=== PATIENT | male | born 2000 | race Caucasian/White ===

== ENCOUNTER 2021-04-10 01:28 | Outpatient (CLI) | payer MEDICAID, SELFPAY ==
--- NOTE | 2021-04-13 10:06 | PDOC.EEG ---
Neurology EEG EEG: [facility] Department of Neurology LONG-TERM AMBULATORY EEG REPORT Date of Recordin04/10/21 at 15:40:50 to 04/12/21 at 12:42:07 Interpreting Physician: Dr. Izabella Edwards PCP/Referring Provider: Dr. 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 Current Medications: Home Medications Medication Instructions Recorded Confirmed Type acetaminophen-calcium carbonat 500 tab PO 05/14/19 07/12/19 History mg-250 mg tablet nortriptyline 75 mg capsule 75 mg PO QHS #30 cap 03/31/21 03/31/21 Rx zonisamide 100 mg capsule 400 mg PO HS cap 03/31/21 03/31/21 History METHODS: An 18-channel digitized electroencephalogram was recorded in the ambulatory setting with video. The 10/20 international system of electrode placement was used and bipolar and referential electrode montages were recorded. In addition to EEG the patient was monitored for EKG and by video. Activation procedures of photic stimulation and hyperventilation were performed if applicable. The duration of the recording was ~45 hours. DESCRIPTION OF EEG: Waking background activity: During maximal wakefulness a 9-Hz posterior background rhythm was present which was well-modulated, symmetrical, reactive to eye opening, and of moderate voltage. Faster frequencies were present in the bilateral anterior head regions. There was a normal anterior-posterior voltage gradient. Drowsy and sleeping background activity: During drowsiness, there was attenuation of the posterior dominant background rhythm and vertex waves. Normal stage II and III sleep was present with symmetrical sleep spindles, K-complexes, and vertex waves with slowing of the background rhythm to delta/theta frequencies. REM sleep manifested by rapid lateral eye movements and faster background rhythms was recorded. Arousal was unremarkable. Interictal abnormalities: Excessive right frontal beta activity. Rare left hemisphere delta slowing, often associated with sharp-waves. Ictal findings: No events recorded. Activating Procedures: Photic stimulation was performed which produced a symmetrical posterior driving response at various flash frequencies. Hyperventilation was performed with moderate effort and produced no physiological slowing of the background. EKG: EKG revealed normal sinus rhythm. INTERPRETATION: This long-term EEG is abnormal due to: #1. Excessive right frontal beta activity. #2. Rare left hemisphere slowing, at times, with sharp waves. PRIOR EEG: -EEG (10/25/14 at [facility]): excessive beta of right frontal region. -EEG (05/12/15 at [facility] [place]): excessive beta in right frontal region, especially F4. CLINICAL CORRELATION: The findings above seem to correlate with the patient's known cerebral malformations. There was no epileptiform activity seen and no events captured. Clinical correlation is advised. Izabella Edwards MD
== END 2021-04-10 01:29 | disposition home or self-care (01) ==
LOC: RT 01:28
PROVIDERS: PCP Family Medicine; Visit Provider Psychiatry & Neurology Neurology
DX: R41.840 Attention and concentration deficit (principal); G40.909 Epilepsy, unspecified, not intractable, without status epilepticus; R94.01 Abnormal electroencephalogram [EEG]; Q04.3 Other reduction deformities of brain
CPT/HCPCS: 95714

== ENCOUNTER 2021-05-08 18:18 | Outpatient (REF) | payer MEDICAID, SELFPAY ==
[2021-05-13 07:54] LABS: Zonisamide 28 mcg/mL (10-40)
== END 2021-05-08 18:19 | disposition home or self-care (01) ==
LOC: LBN 18:18
PROVIDERS: PCP Family Medicine; Visit Provider Psychiatry & Neurology Neurology
DX: G40.909 Epilepsy, unspecified, not intractable, without status epilepticus (principal)
CPT/HCPCS: 80203

== ENCOUNTER 2021-07-20 00:42 | Outpatient (CLI) | payer MEDICAID, SELFPAY ==
--- NOTE | 2021-07-20 08:30 | DI.US_ITS ---
Exam(s) US NEEDLE LOCAL OTHER WO RAD EXAM: US NEEDLE LOCAL OTHER WO RAD CLINICAL HISTORY: Neck mass,R22.0, FINE NEEDLE ASPIRATION,BX. COMPARISON: No exams were available for comparison TECHNIQUE: Ultrasound was provided for Dr. Parrish for guidance with performing a biopsy of a right s ubmandibular gland mass. FINDINGS: Images show a solid vascular mass containing calcifications measuring 2.9 cm in diameter. Images jania w confirmation of needle placement within the mass. Please see procedure note for details. IMPRESSION: Successful Ultrasound-guided biopsy. DATA REPOSITORY:
--- NOTE | 2021-07-20 13:15 | PAPNONF_PTH ---
PATIENT: Avery Anand LOC: [facility] U#:[id number] AGE/SX: 20/M ROOM: RE07/20/[address]: Solomon Parrish MD : 2000 BED: DIS: 07/20/2021 SPEC #: [id number] RECD: 07/20/21 17:59 STATUS: JANET REMike #: [id number] LIZETH: 07/20/21 13:[address]: Solomon Parrish DEPT: [facility] Cytology RECD BY: Fanny Price ENTERED: 07/20/21 18:00 SP TYPE: YANET RODRIGUEZ DR: Ale Mancini V Tissues: 1 - BODY FLUID CYTO-FINE NEEDLE ASPIRATE-[facility] Procedures: BODY FLUID CYTO-FINE NEEDLE ASPIRATE-[facility] Comments: [id number]
--- NOTE | 2021-07-20 14:37 | OPPNE_ITS ---
Procedure Note Date of procedure: 07/20/21 Procedure: FNA, right submandibular gland, ultrasound-guided, pathology available Procedure Diagnosis: Right submandibular mass Procedure Indications: Patient with a right-sided submandibular mass without definitive diagnosis. Options were explained to the family regarding further management. They elected undergo the above procedure. Consent was filled out and signed prior to surgery. Procedure Description: The patient was positioned in the supine position with his head turned to the left. A ultrasound probe was used to localize the mass within his right s ubmandibular gland, and then the patient was prepped and draped in appropriate fashion. 1% lidocaine with 1/100,000 epinephrine was injected into the skin and subcutaneous tissues overlying the mass, and after allowing 5 minutes to elapse a 25-gauge needle was passed repeatedly into the nodule under ultrasound guidance. The specimen was then handed to pathology who assessed this for cellular adequacy. A second pass was made to provide adequate material. On both passes pathology felt there was sufficient cellularity. Following the 2 passes, and after ensuring adequate hemostasis, a sterile dressing was applied and the patient was allowed to sit at the side of the bed, and then stand. His vital signs remained stable. He was able to ambulate without difficulty. He will call if he does not hear from me with regard to pathology within 1 week. He will call with any signs of infection. He may use Tylenol or ibuprofen for discomfort. He had no further questions. He will remove the bandage tomorrow and not replace it. His father had no further questions. They are comfortable with the plan.
== END 2021-07-20 01:02 ==
PROVIDERS: PCP Family Medicine; Visit Provider Otolaryngology
DX: D37.039 Neoplasm of uncertain behavior of the major salivary glands, unspecified (principal)
CPT/HCPCS: 76942; 88104

== ENCOUNTER 2021-09-04 01:11 | Outpatient (CLI) | payer MEDICAID, SELFPAY ==
[2021-09-04 11:42] LABS: Source Nasal/Nares
[2021-09-04 13:41] LABS: COVID-19 PCR Negative (Negative)
== END 2021-09-04 01:12 | disposition home or self-care (01) ==
LOC: LBO 01:11
PROVIDERS: PCP Family Medicine; Visit Provider Otolaryngology
DX: Z20.822 Contact with and (suspected) exposure to COVID-19 (principal); Z01.818 Encounter for other preprocedural examination
CPT/HCPCS: 87635

== ENCOUNTER 2021-09-07 07:30 | Day surgery (SDC) | payer MEDICAID, SELFPAY ==
[2021-09-07] VITALS (7 sets, daily range): BP systolic 103–126; BP diastolic 68–85; PULSE 73–85; RESP 11–16; TEMP 35.9–36.6; O2SAT 97–100; BMI 28.0
[2021-09-07] MEDS: Lactated Ringers 1,000 ML 80 ML IV (08:17)
--- NOTE | 2021-09-07 08:34 | W.ANESPRE ---
General Info Date of Service Date Performed: 09/07/21 Height: 5 ft 6 in Weight: 78.7 kg Body Mass Index (BMI): 28.0 Surgical Procedure: Operation Date: 09/07/21 09:25 Proposed Procedure Side Surgeon p Submandibular Gland Excision Right Solomon Parrish MD Meds Allergies and Home Medications Allergies Allergy/AdvReac Type Severity Reaction Status Date / Time No Known Allergies Allergy Unverified 09/07/21 07:51 Home Medication Medication Instructions Recorded nortriptyline 75 mg capsule 75 mg PO QHS #90 caps 06/08/21 zonisamide 100 mg capsule 400 mg PO HS #360 caps 06/08/21 Current Visit Medications: Current Medications Generic Name Dose Route Start Last Admin Trade Name Freq PRN Reason Stop Dose Admin Ringer's Solution 1,000 mls @ 80 mls/hr 09/07/21 06:00 09/07/21 08:17 IV 10/04/21 23:59 80 mls/hr INFUSION COMPA Administration Cefazolin Sodium/Dextrose 2 gm in 50 mls @ 100 mls/hr 09/07/21 06:00 Ancef Duplex IVPB 10/04/21 23:59 PREOP COMPA Tranexamic Acid 770 mg/ Sodium 57.7 mls @ 346.2 mls/hr 09/07/21 06:00 Chloride IVPB 09/07/21 23:59 DIRECTED COMPA IV Miscellaneous Supplies 1 each 09/07/21 06:00 Iv Access IV 10/04/21 23:59 DIRECTED COMPA Sodium Chloride 0 ml 09/07/21 06:00 Normal Saline Flush 10 Ml Syr IV 10/04/21 23:59 PRN PRN Sodium Chloride 0 ml 09/07/21 06:00 Normal Saline 10 Ml Vial IJ 10/04/21 23:59 DIRECTED PRN Sterile Water 0 ml 09/07/21 06:00 Water,Injection,Sterile 10 Ml Vial IJ 10/04/21 23:59 DIRECTED PRN PFSH Active Problems Active Problems: Problem Status Onset Code Epilepsy G40.909 Chronic daily headache R51 Migraine headache with aura G43.109 Migraine aura without headache G43.109 Polymicrogyria Q04.3 Insomnia G47.00 Mass of right submandibular region R22.0 Skin cyst L72.9 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 Per dad states they are very controlled with medications. Sleeping difficulties Surgical History Surgical History No significant past surgical history Tobacco Smoking/Tobacco Use Status: Former Tobacco Use Alcohol Alcohol Intake: current Alcohol intake frequency: a few times a week Alcohol type: beer and hard liquor Substance Use Substance use: Occasionally Substance use type: marijuana Details: Smoked marijuana last Tuesday09/04/21 Vital Signs and Lab Results Vital Signs Most Recent Vital Signs in EMR: Most Recent Vital Signs Temp Pulse Resp BP Pulse Ox 36.4 C L 85 12 103/68 100 09/07/21 07:45 09/07/21 07:45 09/07/21 07:45 09/07/21 07:45 09/07/21 07:45 Lab Results Blood Type / Crossmatch: No Data to Display Complete Blood Count: No Data to Display Complete Metabolic Panel: No Data to Display Liver Function Panel: No Data to Display Coagulation Panel: No Data to Display Cardiac Panel: No Data to Display Arterial Blood Gas: No Data to Display Venous Blood Gas: No Data to Display Pancreas Panel: No Data to Display Thyroid Panel: No Data to Display Infectious Disease: Coronavirus (COVID-19)(PCR) Negative (Negative) 09/04/21 11:30 Coronavirus 2019 Source Nasal/Nares 09/04/21 11:30 Blood Cultures: No Data to Display Toxicology Panel: No Data to Display Anesthesia Assessment and Plan Anesthesia History Personal History: No History of Anesthesia Complications Family History: No Family History of Anesthesia Complications Exercise Tolerance Exercise Tolerance: Metabolic Equivalents>4 Pertinent Negatives Pertinent Negatives: No Symptoms of GERD, No Major Cardiovascular Symptoms or Complaints, No Major Pulmonary Symptoms or Complaints and No History of CVA/TIA Cardiac & Pulmonary Exam Cardiac Exam: Normal S1/S2 Heart Sounds Pulmonary Exam: Clear Bilateral Breath Sounds Implantable Cardiac Device Does patient have a Pacemaker or an ICD?: No Airway Exam Known Difficult Airway: No Mallampati Class: 1 Mouth Opening: Normal (> 3cm) Thyromental Distance: Greater than 3 cm Neck Range of Motion: Full ROM Neck Circumference: Normal Teeth Condition: Normal Dentition ASA Classification ASA Score: ASA 2 Emergency Case?: No NPO Status NPO Status: NPO Clears >2 hours, Solids >8 hours Anesthesia Plan Resuscitation Status: Full Code Anesthesia Technique: General Anesthesia Airway Planned: Endotracheal Tube Monitors Used: Standard Monitors
[2021-09-07] MEDS: ceFAZolin 2 GM/50 ML BAG IVPB (08:58)
--- NOTE | 2021-09-07 10:37 | GLAND_PTH ---
PATIENT: Avery Anand LOC: [facility] U#:[id number] AGE/SX: 20/M ROOM: RE09/07/[address]: Solomon Parrish MD : 2000 BED: DIS: 09/07/2021 SPEC #: [id number] RECD: 09/07/21 12:16 STATUS: JANET REMike #: [id number] LIZETH: 09/07/21 10:[address]: Solomon Parrish DEPT: Surgical Specimen RECD BY: Fanny Price ENTERED: 09/07/21 12:17 SP TYPE: Gland OTHR DR: Ale Mancini V Tissues: 1 - SOFT TISSUE MISC (INC. LIPOMA) 2 - SKIN CYST/TAG/DEBRIDEMENT Procedures: GROSS AND MICRO LEVEL 5 GROSS AND MICRO LEVEL 3 Comments: [id number]
[2021-09-07] MEDS: Lidocaine 1% Multi-Dose W/EPI 1/100,000 50 ML VIAL (11:11)
--- NOTE | 2021-09-07 11:19 | W.PM.DSUDISC ---
Discharge Plan Disposition Patient Disposition: HOME Condition: Good Discharge Details Reason For Visit: Submandibular gland excision, skin cyst excision Attending Provider: Solomon Parrish Primary Care Provider: Ale Mancini V Home Meds and New Rx's Prescriptions: No Action zonisamide 100 mg capsule 400 mg PO HS Qty: 360 3RF nortriptyline 75 mg capsule 75 mg PO QHS Qty: 90 3RF Discharge Instructions Additional Instructions: Avoid lifting greater than 20 pounds for the next week, light activity only today, walk at least a quarter of mile per day thereafter. May return to work on Tuesday with above restriction. Remove dressing tomorrow after shower, then you may get the wound wet. Do not reapply dressing except if necessary for work. Apply bacitracin or Neosporin ointment twice a day to both incisions for 3 days once dressings are removed. Call with any signs of infection, or excessive swelling. Call with any concerns. Ibuprofen or Tylenol for pain. Continue your previous medications. Referrals: Solomon Parrish MD [ [facility] STAFF PHYSICIAN] - (1 week for suture removal, please call for an appointment for the patient prior to his departure from recovery) Diet:: As Tolerated Discharge Orders Discharge Orders: Discharge Order (Routine); Ordered 09/07/21 Ordered By: Solomon Parrish
--- NOTE | 2021-09-07 11:23 | ROE_ITS ---
Operative Note Operative Note DATE OF PROCEDURE: 09/07/21 PRE-OP DIAGNOSIS: Right submandibular gland mass, left skin cyst, neck POST-OP DIAGNOSIS: same PROCEDURE: Right submandibular gland excision, left skin cyst excision, simple closure SURGEON: Solomon Parrish COMPUTERIZED MACHINE FABRIC CUTTER: Krystina Keys ANESTHESIA TYPE: General LMA/ETT Refer to Anesthesia Record ESTIMATED BLOOD LOSS: 20 PATHOLOGY: other (Right submandibular gland, left skin cyst) COMPLICATIONS: None Patient was transported to: PACU Patient's condition: stable Indications: Patient with a right-sided submandibular gland lesion, FNA consistent with basal cell, which could be a pleomorphic variant, but could represent malignancy, options were explained, and the patient and his father elected to undergo the above procedure. Consent was filled out and signed prior to surgery. At the same time, they noted a cyst on his left neck. They asked if this could be removed at the same time. H&P was reviewed. There have been no changes. Findings: Simple skin cyst, left neck. Dimensions 1.2 x 1.0 x 1.2 cm. Large firm right submandibular gland mass, located in the anterior aspect of the gland, no obvious extension into the soft tissues, no associated lymphadenopathy. Procedure Description: After obtaining an adequate level of general endotracheal anesthesia the patient was positioned in supine position with his head turned to the left. A standard submandibular gland excision incision was outlined approximately 2 cm below the angle of the mandible. The patient was prepped and draped in appropriate fashion. 1% lidocaine with 1/100,000 epinephrine was injected into the subcutaneous tissues underlying the planned incision. A 15 blade was then used to incise the skin, subcutaneous tissues, and platysma. At that point time the fascia overlying the submandibular gland was encountered and it was divided low in the neck, at the inferior edge of the submandibular gland, and elevated cephalad to try to prevent any injury to the marginal mandibular nerve. The submandibular gland was progressively skeletonized, sparing the facial artery. Once it had been skeletonized down to the point where it was attached by only the submandibular duct, the submandibular duct was crossclamped, and doubly ligated with three-point 0 silk sutures. The specimen was then removed to the table. Care was taken not to damage the hypoglossal nerve, or the lingual nerve as well. Once the wound was inspected for hemostasis, Valsalva was performed revealing no further bleeding. Wound was then closed in 2 layers consisting of an inverted interrupted three-point 0 Monocryl closure of the platysma and then an inverted interrupted 3-point 0 Monocryl closure of the subcuticular tissues. Incision appeared healthy. Sterile dressing was then applied. Attention was then turned to the left neck where the skin cyst was noted. 1% lidocaine with 1/100,000 epinephrine was injected over the skin just, and then an ellipse made around the pore that appeared to communicate with the cyst. The cyst was then carefully dissected. This was loosely attached to the subcutaneous tissues. The cyst was removed with the incision length being 1.5 cm in length, and 3 mm in width. Wound was then closed in a single layer of fou r-point 0 nylon sutures. Sterile dressing was again applied. The patient was then awakened and extubated by anesthesia and taken recovery room in stable condition. There is no evidence of hematoma. I was present throughout the entire case.
--- NOTE | 2021-09-08 07:12 | W.ANESPOSTOP ---
Postoperative Evaluation Date, Time and Location Date Performed: 09/07/21 Time Performed: 12:45 Patient Location: Day Surgery Unit Vital Signs Most Recent Imported Vital Signs: Most Recent Vital Signs Temp Pulse Resp BP Pulse Ox 36 C L 77 12 119/85 100 09/07/21 12:32 09/07/21 12:32 09/07/21 12:32 09/07/21 12:32 09/07/21 12:32 Pain Score Most Recent Pain Score: Most Recent Pain Score Pain Level 3 09/07/21 12:32 Assessment Mental Status: Awake (Alert & Oriented to Patient Baseline) Airway and Respiratory Function: Patent airway with normal (patient baseline) respiratory exam Cardiovascular Function: Hemodynamically Stable Hydration Status: Adequately Hydrated Nausea & Vomiting: No Nausea or Vomiting Pain: Pain is tolerable per patient Peripheral Nerve Block: Patient did not receive a nerve block Postoperative Comments:: Pt. complains of sore throat. Advised to use warm liquids and this should resolve over the next 24 hours. Instructed to call us back if this continues. No obvious trauma noted.
== END 2021-09-07 13:53 | disposition home or self-care (01) ==
PROVIDERS: PCP Family Medicine; Visit Provider Otolaryngology
PROC: (CPT 42410; principal; 2021-09-07 09:15)
DX: G47.00 Insomnia, unspecified; G40.909 Epilepsy, unspecified, not intractable, without status epilepticus; Z79.899 Other long term (current) drug therapy; L72.9 Follicular cyst of the skin and subcutaneous tissue, unspecified; K11.6 Mucocele of salivary gland
CPT/HCPCS: 42440; 11422; 88304; 88307; J0690; J1100; J2250; J2405; J3010